=== PATIENT | male | born 1995 | race Caucasian/White ===

== ENCOUNTER 2020-03-27 19:48 | Emergency (ER) | payer OTHER ==
--- NOTE | 2020-03-27 20:18 | CR ---
PROCEDURE INFORMATION: Exam: XR Right Knee Exam date and time: 03/27/2020 8:01 PM Age: 24 years old Clinical indication: Pain; Knee; Right; Additional info: Right knee pain TECHNIQUE: Imaging protocol: XR Right knee. Views: 3 views. COMPARISON: No relevant prior studies available. FINDINGS: Bones/joints: There is normal osseous mineralization. There are no suspicious lytic or osteosclerotic lesions. Normal alignment. No fracture deformity. No dislocation. No callus formation. No periarticular osteophytes or erosions. No loose bodies. Soft tissues: No soft tissue gas or foreign body. IMPRESSION: No acute findings.
== END 2020-03-27 21:10 | disposition left against medical advice (07) ==
LOC: DL.ED 19:48
DX: Z53.21 Procedure and treatment not carried out due to patient leaving prior to being seen by health care provider (principal)
CPT/HCPCS: 73562-RT

== ENCOUNTER 2020-12-27 08:20 | Emergency (ER) | payer OTHER ==
--- NOTE | 2020-12-27 08:30 | EDM.PDOC ---
ED HPI GENERAL MEDICAL PROBLEM - General Chief Complaint: Chest Pain Stated Complaint: [id number] CHEST PAIN SOB Time Seen by Provider: 12/27/20 08:30 Source of Information: Reports: Patient, RN, RN Notes Reviewed History Limitations: Reports: No Limitations - History of Present Illness INITIAL COMMENTS - FREE TEXT/NARRATIVE: Pt presents to ER by POV with c/o 3 days duration of congestion and cough. Yesterday he developed central chest pain that has been constant. Denies sputum production, hemoptysis, or wheezing. The pain does not radiate. Admits to mild shortness of breath. Pt states he doesn't feel the chest pain is related to the congestion, as it has been constant and does not vary with coughing or movement. Pt denies any past medical history. Denies family Hx of CAD. Pt smokes cigarettes, 1PPD for about 8 to 10 years. Onset: Gradual Duration: Day(s): (1), Constant Location: Reports: Chest Quality: Reports: Ache, Pressure Severity: Moderate Improves with: Reports: None Worsens with: Reports: None Associated Symptoms: Reports: No Other Symptoms Chest Pain Score (Numeric/FACES): 7 - Related Data Allergies Allergy/AdvReac Type Severity Reaction Status Date / Time No Known Allergies Allergy Verified 03/27/20 20:10 Home Meds: Home Meds . [No Known Home Meds] 03/27/20 [History] Past Medical History - Past Health History Medical/Surgical History: Denies Medical/Surgical History Social & Family History - Family History Family Medical History: No Pertinent Family History - Tobacco Use Tobacco Use Status *Q: Current Every Day Tobacco User Tobacco Use Within Last Twelve Months: Cigarettes - Living Situation & Occupation Living situation: Reports: with Family Occupation: Employed ED ROS GENERAL - Review of Systems Review Of Systems: Comprehensive ROS is negative, except as noted in HPI. ED EXAM, GENERAL - Physical Exam Exam: See Below Exam Limited By: No Limitations General Appearance: Alert, WD/WN, No Apparent Distress, Anxious Eye Exam: Bilateral Eye: Normal Inspection Ears: Normal External Exam, Hearing Grossly Normal Nose: No Blood, Other (Moderat nasal congestion with clear mucus drainage) Throat/Mouth: Normal Lips, Normal Voice, No Airway Compromise, Other (clear postnasal drip) Head: Atraumatic, Normocephalic Neck: Normal Inspection, Supple, Non-Tender, Full Range of Motion. No: Lymphadenopathy (L), Lymphadenopathy (R) Respiratory/Chest: No Respiratory Distress, Lungs Clear, Normal Breath Sounds, No Accessory Muscle Use, Chest Non-Tender, Other (Raspy cough). No: Crackles, Rales, Rhonchi, Wheezing Cardiovascular: Normal Peripheral Pulses, Regular Rate, Rhythm, No Edema, Tachycardia GI/Abdominal: Normal Bowel Sounds, Soft, Non-Tender, No Organomegaly, No Distention, No Abnormal Bruit, No Mass Back Exam: Normal Inspection Extremities: Normal Inspection, Normal Range of Motion, Non-Tender, Normal Capillary Refill, No Pedal Edema Neurological: Alert, Oriented, CN II-XII Intact, Normal Cognition, No Motor/Sensory Deficits Psychiatric: Normal Affect, Normal Mood Skin Exam: Warm, Dry, Intact, Normal Color, No Rash #1 Interpretation EKG Date: 12/27/20 Time: 08:25 Rhythm: Other (Sinus tach) Rate (Beats/Min): 104 [place]: Normal P-Wave: Present QRS: Normal ST-T: Other (Isoloated ST-T segment elevation in V2) QT: Normal Comparison: NA - No Prior EKG EKG Interpretation Comments: No acute ischemic changes. Course - Vital Signs Last Recorded V/S: Last Vital Signs Temp 97.3 F 12/27/20 08:36 Pulse 107 H 12/27/20 08:36 Resp 17 12/27/20 08:36 BP 151/91 H 12/27/20 08:36 Pulse Ox 100 12/27/20 08:36 - Orders/Labs/Meds Orders: Active Orders 24 hr Category Date Time Status EKG 12 Lead [EKG Documentation Completion] [RC] STAT Care 12/27/20 08:31 Active Peripheral IV Care [RC] . DIRECTED Care 12/27/20 09:20 Active INR,PT,PROTHROMBIN TIME [COAG] Stat Lab 12/27/20 09:20 Ordered PTT,PARTIAL THROMBOPLSTIN TIME [COAG] Stat Lab 12/27/20 09:20 Ordered Heparin Sodium/0.45% NaCl [Heparin 25,000 Units in 1/2 Med 12/27/20 09:30 Active NS 500 ML] 25,000 units in 500 ml IV TITRATE Sodium Chloride 0.9% [Saline Flush] Med 12/27/20 09:19 Active 10 ml FLUSH ASDIRECTED PRN Peripheral IV Insertion Adult [OM.PC] Stat Oth 12/27/20 09:20 Ordered Medication Orders Heparin Sodium/Sodium Chloride (Heparin 25,000 Units In 1/2 Ns 500 Ml) 25,000 units in 500 mls @ 25.648 mls/hr IV TITRATE ELLEN; Protocol Last Admin: 12/27/20 09:28 Dose: 12 units/kg/hr, 25.648 mls/hr Documented by: IVETT Cosigned by: RYLEY Sodium Chloride (Sodium Chloride 0.9% 10 Ml Syringe) 10 ml FLUSH ASDIRECTED PRN PRN Reason: Keep Vein Open Last Admin: 12/27/20 09:28 Dose: 10 ml Documented by: IVETT Labs: Laboratory Tests 12/27/20 12/27/20 12/27/20 Range/Units 08:38 08:39 08:39 WBC 12.5 H (5.0-10.0) 10^3/uL RBC 4.78 (4.6-6.2) 10^6/uL Hgb 15.5 (14.0-18.0) g/dL Hct 44.0 (40.0-54.0) % MCV 92.1 (80-100) fL MCH 32.4 (27.0-34.0) pg MCHC 35.2 H (33.0-35.0) g/dL Plt Count 229 (150-450) 10^3/uL Neut % (Auto) 67.6 (42.2-75.2) % Lymph % (Auto) 16.7 L (20.5-50.1) % [place] % (Auto) 14.6 H (2-8) % Eos % (Auto) 0.9 L (1.0-3.0) % Baso % (Auto) 0.2 (0.0-1.0) % D-Dimer, Quantitative 146 (0-400) ng/mL Sodium (136-145) mmol/L Potassium (3.5-5.1) mmol/L Chloride (98-107) mmol/L Carbon Dioxide (21-32) mmol/L Anion Gap (7-13) mEq/L BUN (7-18) mg/dL Creatinine (0.70-1.30) mg/dL Est Cr Clr Drug Dosing mL/min Estimated GFR (MDRD) BUN/Creatinine Ratio (No establ ref range) Glucose (70-99) mg/dL Calcium (8.5-10.1) mg/dL Total Bilirubin (0.2-1.0) mg/dL AST (15-37) U/L ALT (16-63) U/L Alkaline Phosphatase (46-116) U/L Troponin I High Sens (<=76) pg/mL C-Reactive Protein (0.0-0.9) mg/dL Total Protein (6.4-8.2) g/dL Albumin (3.4-5.0) g/dL Globulin Albumin/Globulin Ratio Amylase (25-115) U/L Lipase (73-393) U/L Influenza Type A RNA Negative (NEGATIVE) Influenza Type B RNA Negative (NEGATIVE) SARS-CoV-2 RNA ([place]ONZ[place]LE[place]) Negative (NEGATIVE) 12/27/20 Range/Units 08:39 WBC (5.0-10.0) 10^3/uL RBC (4.6-6.2) 10^6/uL Hgb (14.0-18.0) g/dL Hct (40.0-54.0) % MCV (80-100) fL MCH (27.0-34.0) pg MCHC (33.0-35.0) g/dL Plt Count (150-450) 10^3/uL Neut % (Auto) (42.2-75.2) % Lymph % (Auto) (20.5-50.1) % [place] % (Auto) (2-8) % Eos % (Auto) (1.0-3.0) % Baso % (Auto) (0.0-1.0) % D-Dimer, Quantitative (0-400) ng/mL Sodium 135 L (136-145) mmol/L Potassium 3.9 (3.5-5.1) mmol/L Chloride 98 (98-107) mmol/L Carbon Dioxide 27 (21-32) mmol/L Anion Gap 13.9 H (7-13) mEq/L BUN 8 (7-18) mg/dL Creatinine 0.91 (0.70-1.30) mg/dL Est Cr Clr Drug Dosing 144.28 mL/min Estimated GFR (MDRD) > 60 BUN/Creatinine Ratio 8.8 (No establ ref range) Glucose 112 H (70-99) mg/dL Calcium 8.7 (8.5-10.1) mg/dL Total Bilirubin 0.8 (0.2-1.0) mg/dL AST 13 L (15-37) U/L ALT 37 (16-63) U/L Alkaline Phosphatase 98 (46-116) U/L Troponin I High Sens 234 H* (<=76) pg/mL C-Reactive Protein 2.7 H (0.0-0.9) mg/dL Total Protein 7.8 (6.4-8.2) g/dL Albumin 4.1 (3.4-5.0) g/dL Globulin 3.7 Albumin/Globulin Ratio 1.1 Amylase 19 L (25-115) U/L Lipase 32 L (73-393) U/L Influenza Type A RNA (NEGATIVE) Influenza Type B RNA (NEGATIVE) SARS-CoV-2 RNA ([place]) (NEGATIVE) Meds: Medications Generic Name Dose Route Start Last Admin Trade Name Brook PRN Reason Stop Dose Admin Heparin Sodium/Sodium Chloride 25,000 units in 500 mls @ 25.648 mls/hr 12/27/20 09:30 12/27/20 09:28 Heparin 25,000 Units In 1/2 Ns 500 Ml IV 12 units/kg/hr TITRATE ELLEN 25.648 mls/hr Administration Protocol 12 UNITS/KG/HR Sodium Chloride 10 ml 12/27/20 09:19 12/27/20 09:28 Sodium Chloride 0.9% 10 Ml Syringe FLUSH 10 ml ASDIRECTED PRN Administration Keep Vein Open Discontinued Medications Generic Name Dose Route Start Last Admin Trade Name Brook PRN Reason Stop Dose Admin Aspirin 324 mg 12/27/20 09:19 12/27/20 09:27 Aspirin 81 Mg Tab.Chew PO 12/27/20 09:20 324 mg ONETIME ONE Administration Heparin Sodium (Porcine) 4,000 units 12/27/20 09:20 12/27/20 09:28 Heparin Sodium 5,000 Units/Ml Vial IVPUSH 12/27/20 09:21 4,000 units .BOLUS ONE Administration Nitroglycerin 1 gm 12/27/20 09:36 12/27/20 09:41 Nitroglycerin 2% Oint 1 Gm Ud Packet TOP 12/27/20 09:37 1 gm ONETIME ONE Administration - Radiology Interpretation Free Text/Narrative:: [facility] [place] [facility] Final Radiology Report Call: [phone] assistance Online chat: [email or web address] Name: ROSA MARIA ENAMORADO Age: 25Years M Date: 12/27/2020 SSN: -- : [id number] Study: CR CHEST 1V FRONTAL Requesting Physician: LAUREN THEODORE Images: 1 Addl Studies: Provided Clinical History: chest pain Contrast: Contrast Medium: Contrast Amount: Contrast Method: CONFIDENTIALITY STATEMENT This report is intended only for use by the referring physician, and only in accordance with law. If you received this in error, call [phone]. Page 1 of 1 PROCEDURE INFORMATION: Exam: XR Chest Exam date and time: 12/27/2020 8:47 AM Age: 25 years old Clinical indication: Pain; Other: Chest; Additional info: Chest pain TECHNIQUE: Imaging protocol: XR of the chest. Views: 1 view. COMPARISON: No relevant prior studies available. FINDINGS: Lungs: Unremarkable. No consolidation. Pleural spaces: Unremarkable. No pleural effusion. No pneumothorax. Heart/Mediastinum: Unremarkable. No cardiomegaly. Bones/joints: Unremarkable. IMPRESSION: No evidence for acute pulmonary disease. Thank you for allowing us to participate in the care of your patient. Dictated and Authenticated by: Adriano Rivera MD 12/27/2020 9:11 AM Central Time ([place] & [place]) - Re-Assessments/Exams Free Text/Narrative Re-Assessment/Exam: 12/27/20 09:30 Critical lab value notification: Troponin 234 (upper limit for acute cardiac ischemia = 76) Departure - Departure Time of Disposition: 09:46 Disposition: DC/Tfer to Acute Hospital 02 Reason for Transfer *Q: Other Condition: Good Clinical Impression: Elevated troponin, Non-STEMI (non-ST elevated myocardial infarction) Forms: ED Department Discharge, Interfacility Transfer [facility] Sepsis Event Note (ED) - Focused Exam Vital Signs: Vital Signs Temp Pulse Resp BP Pulse Ox 12/27/20 08:36 97.3 F 107 H 17 151/91 H 100 - My Orders Last 24 Hours: My Active Orders 12/27/20 08:31 EKG 12 Lead [EKG Documentation Completion] [RC] STAT 12/27/20 09:19 Sodium Chloride 0.9% [Saline Flush] 10 ml FLUSH ASDIRECTED PRN 12/27/20 09:20 Peripheral IV Care [RC] . DIRECTED INR,PT,PROTHROMBIN TIME [COAG] Stat PTT,PARTIAL THROMBOPLSTIN TIME [COAG] Stat Peripheral IV Insertion Adult [OM.PC] Stat 12/27/20 09:30 Heparin Sodium/0.45% NaCl [Heparin 25,000 Units in 1/2 NS 500 ML] 25,000 units in 500 ml IV TITRATE - Assessment/Plan Last 24 Hours: My Active Orders 12/27/20 08:31 EKG 12 Lead [EKG Documentation Completion] [RC] STAT 12/27/20 09:19 Sodium Chloride 0.9% [Saline Flush] 10 ml FLUSH ASDIRECTED PRN 12/27/20 09:20 Peripheral IV Care [RC] . DIRECTED INR,PT,PROTHROMBIN TIME [COAG] Stat PTT,PARTIAL THROMBOPLSTIN TIME [COAG] Stat Peripheral IV Insertion Adult [OM.PC] Stat 12/27/20 09:30 Heparin Sodium/0.45% NaCl [Heparin 25,000 Units in 1/2 NS 500 ML] 25,000 units in 500 ml IV TITRATE
--- NOTE | 2020-12-27 09:11 | CR ---
PROCEDURE INFORMATION: Exam: XR Chest Exam date and time: 12/27/2020 8:47 AM Age: 25 years old Clinical indication: Pain; Other: Chest; Additional info: Chest pain TECHNIQUE: Imaging protocol: XR of the chest. Views: 1 view. COMPARISON: No relevant prior studies available. FINDINGS: Lungs: Unremarkable. No consolidation. Pleural spaces: Unremarkable. No pleural effusion. No pneumothorax. Heart/Mediastinum: Unremarkable. No cardiomegaly. Bones/joints: Unremarkable. IMPRESSION: No evidence for acute pulmonary disease.
[2020-12-27 09:14] LABS: ANION GAP 13.9 mEq/L (7-13); CHLORIDE,CL 98 mmol/L (98-107); SODIUM,NA 135 mmol/L (136-145)
[2020-12-27] MEDS ORDERED: Sodium Chloride 0.9% 10 ML Syringe FLUSH PRN (09:19)
[2020-12-27] MEDS ORDERED: Aspirin 81 MG Tab.Chew PO ONE (09:19)
[2020-12-27] MEDS ORDERED: Heparin Sodium 5,000 Units/ML Vial IVPUSH ONE (09:20)
[2020-12-27 09:25] LABS: CORONAVIRUS COVID-19 NAA NEGATIVE (NEGATIVE)
[2020-12-27] MEDS ORDERED: Heparin Sodium/0.45% NaCl 25,000 UNITS/500 ML BAG IV SCH (09:30)
[2020-12-27] MEDS ORDERED: Nitroglycerin 2% Oint 1 GM UD Packet TOP ONE (09:36)
[2020-12-27 09:54] LABS: PTT,PARTIAL THROMBOPLSTIN TIME 25.3 SEC (22.0-34.0)
== END 2020-12-27 09:58 ==
LOC: DL.ED 08:20
DX: I21.4 Non-ST elevation (NSTEMI) myocardial infarction (principal); R79.89 Other specified abnormal findings of blood chemistry; Z20.822 Contact with and (suspected) exposure to COVID-19; Z72.0 Tobacco use
CPT/HCPCS: 0240U; 36415; 71045; 80053; 82150; 83690; 84484; 85025; 85379; 85610; 85730; 86140; 93005; 93010; 96365; 99284; 99284-25; A9270-GY; J1644